=== PATIENT | male | born 1980 | race Caucasian/White ===

== ENCOUNTER 2016-12-20 10:37 | Inpatient (IN) | payer OTHER ==
[2016-12-20] MEDS ORDERED: AMPICILLIN NA/SULBACTAM NA 3 GM in SODIUM CHLORIDE 100 ML IVPB ONE (11:44)
[2016-12-20 12:06] LABS: BASOPHIL 1.3 % (0-2.0); EOSINOPHIL 0.5 % (0-4.5); MCH 29.4 pg (25.7-33.7); MCHC 33.8 g/dl (32.0-35.9); MEAN PLT VOLUME 8.3 fl (7.5-11.1); NEUTROPHILS 77.9 % (42.8-82.8); PLATELET COUNT 281 K/MM3 (134-434); WHITE BLOOD COUNT 12.4 K/mm3 (4.0-10.0)
[2016-12-20] MEDS ORDERED: LEVOFLOXACIN 500 MG IVPB 100 ML IVPB ONE ×2 (12:06→12:17)
[2016-12-20] MEDS ORDERED: METRONIDAZOLE 500 MG PREMIXED 100 ML IVPB ONE ×2 (12:06→12:17)
[2016-12-20 12:18] LABS: INR 1.03 (0.82-1.09); PROTHROMBIN TIME (PATIENT) 11.3 SEC (9.98-11.88)
[2016-12-20 12:21] LABS: ACTIVATED PTT 27.8 SECONDS (26.9-34.4)
[2016-12-20 12:30] LABS: ANION GAP 8 (8-16); BILIRUBIN,TOTAL 0.3 mg/dL (0.2-1.0); CALCIUM 8.9 mg/dL (8.5-10.1); CO2 25 mmol/L (21-32); CREATININE 0.6 mg/dL (0.7-1.3); GLUCOSE,RANDOM 263 mg/dL (74-106); SGOT/AST 16 U/L (15-37); SGPT/ALT 32 U/L (12-78); TOT PROT 6.8 g/dl (6.4-8.2)
[2016-12-20 12:31] LABS: ALK PHOS 182 U/L (45-117)
[2016-12-20] MEDS ORDERED: morphine CARPU-JECT 4 MG/1 ML DISP.SYRIN IVPUSH ONE (12:31)
--- NOTE | 2016-12-20 12:34 | PDOC ---
History of Present Illness - General Chief Complaint: Abscess Boil Stated Complaint: INFECTION ON BUTTOCKS Time Seen by Provider: 12/20/16 11:30 History Source: Patient Exam Limitations: No Limitations - History of Present Illness Initial Comments: 12/20/16 12:27 36 yr male with c/o painful abscess to rectal area started 5-7 days ago now worse and draining with chills last night. Pt has neg abd pain or vomiting, no past medical history. 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 Pt has no PMD, was seen at the clinic last sunday . Timing/Duration: reports: week Severity: Yes: moderate Location: reports: other (rectal/perianal ) Past History - Past Medical History Allergies/Adverse Reactions: Allergies Allergy/AdvReac Type Severity Reaction Status Date / Time Penicillins Allergy Mild Hives Verified 12/20/16 12:30 Home Medications: Ambulatory Orders NK [No Known Home Medication] 12/20/16 - Suicide/Smoking/Psychosocial Hx Smoking History: Former smoker Have you smoked in the past 12 months: No If you are a former smoker, when did you quit?: 13 YRS AGO Information on smoking cessation initiated: No Hx Alcohol Use: No Drug/Substance Use Hx: No Substance Use Type: None Review of Systems - Review of Systems Able to Perform ROS?: Yes Is the patient limited Welsh proficient: No Constitutional: Yes: Symptoms Reported, Chills HEENTM: No: Symptoms Reported Respiratory: No: Symptoms reported Cardiac (ROS): No: Symptoms Reported ABD/GI: Yes: Symptoms Reported, See HPI, Constipated : No: Symptoms Reported Musculoskeletal: No: Symptoms Reported Integumentary: Yes: See HPI *Physical Exam - Vital Signs Last Vital Signs Temp Pulse Resp BP Pulse Ox 98.4 F 99 H 20 146/105 97 12/20/16 10:38 12/20/16 10:38 12/20/16 10:38 12/20/16 10:38 12/20/16 10:38 - Physical Exam General Appearance: Yes: Nourished, Appropriately Dressed HEENT: positive: EOMI, OLIVER, Normal ENT Inspection, TMs Normal, Pharynx Normal Neck: positive: Supple. negative: Tender Respiratory/Chest: positive: Lungs Clear, Normal Breath Sounds Cardiovascular: positive: Regular Rhythm, Regular Rate Gastrointestinal/Abdominal: positive: Normal Bowel Sounds, Soft. negative: Tender Male Genitalia: positive: normal genitalia Rectal Exam: positive: other (tender indurated mass to the left perirectal area approximately 6cm extending to the buttock with drainage , ) Musculoskeletal: positive: Normal Inspection Extremity: positive: Normal Inspection, Normal Range of Motion Integumentary: positive: Normal Color, Dry, Warm Neurologic: positive: Fully Oriented, Alert, Normal Mood/Affect, Normal Response , Motor Strength 08/04 ED Treatment Course - LABORATORY CBC & Chemistry Diagram: 12/21/16 06:00 12/21/16 06:00 - ADDITIONAL ORDERS Additional order review: Laboratory Results 12/20/16 11:57 PT with INR 11.30 INR 1.03 PTT (Actin FS) 27.8 12/20/16 11:57 RBC 5.08 MCV 87.0 MCHC 33.8 RDW 13.0 MPV 8.3 Neutrophils % 77.9 Lymphocytes % 11.6 Monocytes % 8.7 Eosinophils % 0.5 Basophils % 1.3 - RADIOLOGY Radiology Studies Ordered: Category Date Time Status ABDOMEN & PELVIS CT WITH CONTR [CT] Stat CT Scan 12/20/16 11:39 Ordered - Medications Given in the ED: ED Medications Discontinued Medications Generic Name Dose Route Start Last Admin Trade Name Freq PRN Reason Stop Dose Admin Ampicillin Sodium/Sulbactam 100 mls @ 200 mls/hr 12/20/16 11:44 12/20/16 12:16 Sodium 3 gm/ Sodium Chloride IVPB 12/20/16 12:13 Not Given ONCE ONE - Consult/PCP Time Called: 13:05 Case discussed with personal care physician: Darius Garrett Consult Reason/Comments: case discussed and will admit , will call - Additional Consults Time Called: 13:14 Consult/PCP: Progress Note - Progress Note Progress Note: after ordering Unaysn pt told the RN he was allergic to PCN. I have canceled and ordered levaquin and Flagyl. Medical Decision Making - Medical Decision Making 12/20/16 12:29 cc: rectal pain with abscess for one week had chills and drainage start last night pt is unable to sit or lie on back due to pain pt denies and PMH will do labs, IVAB , Ct pelvis to r/o rectal abscess pt has induration with fluctuance to the per rectal area extending to the left buttock case discussed in detail with ER attending Dr. Kelley and agrees with plan to admit for IVAB 12/20/16 12:48 after ordering Unaysn pt told the RN he was allergic to PCN. I have canceled and ordered Levaquin and Flagyl. 12/20/16 14:38 called the ER states the patient has no insurance so pt is to be admitted to the hospitalist. I have spoke to 's office and I have canceled as the pt is no longer admitted to . I have spoke to admitting hospitalist and has accepted the patient. I have spoke to organizational psychologist surgery and he will consult on the patient. 12/20/16 14:54 *DC/Admit/Observation/Transfer Diagnosis at time of Disposition: Perirectal abscess - Discharge Dispostion Admit: Yes - Referrals
[2016-12-20 13:14] LABS: URINE APPEARANCE CLEAR; URINE BILIRUBIN NEGATIVE (NEGATIVE); URINE BLOOD NEGATIVE (NEGATIVE); URINE COLOR LTYELLOW; URINE GLUCOSE (UA) 3+ (NEGATIVE); URINE KETONE 2+ (NEGATIVE); URINE LEUK ESTERASE NEGATIVE (NEGATIVE); URINE NITRITE NEGATIVE (NEGATIVE); URINE PROTEIN NEGATIVE (NEGATIVE); URINE UROBILINOGEN NEGATIVE mg/dL (0.2-1.0)
[2016-12-20] MEDS ORDERED: morphine CARPU-JECT 4 MG/1 ML DISP.SYRIN ONE (14:05)
--- NOTE | 2016-12-20 14:29 | HP ---
Admitting History and Physical - Admission Chief Complaint: rectal pain 5 days. swelling. mistaking for hemorroids. wbc high History of Present Illness: glucose ? high ? dm History Source: Patient Limitations to Obtaining History: No Limitations - Past Medical History Endocrine: Yes: Diabetes Mellitus - Past Surgical History Past Surgical History: Yes: None - Smoking History Smoking history: Former smoker Have you smoked in the past 12 months: No If you are a former smoker, when did you quit?: 13 YRS AGO - Alcohol/Substance Use Hx Alcohol Use: No Home Medications - Allergies Allergies/Adverse Reactions: Allergies Allergy/AdvReac Type Severity Reaction Status Date / Time Penicillins Allergy Mild Hives Verified 12/20/16 12:30 - Home Medications Home Medications: Ambulatory Orders NK [No Known Home Medication] 12/20/16 Physical Examination Vital Signs: Vital Signs Temperature 98.4 F 12/20/16 10:38 Pulse Rate 99 H 12/20/16 10:38 Respiratory Rate 20 12/20/16 10:38 Blood Pressure 146/105 12/20/16 10:38 O2 Sat by Pulse Oximetry (%) 97 12/20/16 10:38
--- NOTE | 2016-12-20 15:02 | HP ---
CHIEF COMPLAINT: perianal pain PCP: None HISTORY OF PRESENT ILLNESS: 36 yo M with no signifcant PMHx presents to ED with one week history of worsening perianal pain. Approximately 5 days prior to visit he started with pulsating pain of his left medial gluteus that subsequently became more painful and red. He went to walk in clinic and was given hydrocortisone cream for the redness. Pain worsened and redness spread. He then developed a draining abscess. For past day pain had gotten to point where he could no longer sit and even ambulating became difficult, which prompted trip to ED. He endorses subjective fevers and chills. No prior similar events in past. Denies CP, SOSA, SOB, palpitations, abdominal pain, N/V. No sick contacts or recents travel. ER course was notable for: (1)CBC shows WBC - 12.4 and tachycardic HR 99 = sepsis (2)CT A/P shows inflammatory changes but no discrete abscess. (3)Hyperglycemia- random glucose 263 Recent Travel:Denies PAST MEDICAL HISTORY:none PAST SURGICAL HISTORY:none Social History: Smoking:never Alcohol:socially Drugs: denies Family History: non-contributory Allergies Penicillins Allergy (Mild, Verified 12/20/16 12:30) Hives HOME MEDICATIONS: Home Medications Medication Instructions Recorded NK [No Known Home Medication] 12/20/16 REVIEW OF SYSTEMS CONSTITUTIONAL: fever, chills, diaphoresis Absent: , generalized weakness, malaise, loss of appetite, weight change HEENT: Absent: rhinorrhea, nasal congestion, throat pain, throat swelling, difficulty swallowing, mouth swelling, ear pain, eye pain, visual changes CARDIOVASCULAR: Absent: chest pain, syncope, palpitations, irregular heart rate, lightheadedness , peripheral edema RESPIRATORY: Absent: cough, shortness of breath, dyspnea with exertion, orthopnea, wheezing, stridor, hemoptysis GASTROINTESTINAL: Absent: abdominal pain, abdominal distension, nausea, vomiting, diarrhea, constipation, melena, hematochezia GENITOURINARY: Absent: dysuria, frequency, urgency, hesitancy, hematuria, flank pain, genital pain MUSCULOSKELETAL: Absent: myalgia, arthralgia, joint swelling, back pain, neck pain SKIN: painful lesion of left buttocks. Absent: rash, itching, pallor HEMATOLOGIC/IMMUNOLOGIC: Absent: easy bleeding, easy bruising, lymphadenopathy, frequent infections ENDOCRINE: Absent: unexplained weight gain, unexplained weight loss, heat intolerance, cold intolerance NEUROLOGIC: Absent: headache, focal weakness or paresthesias, dizziness, unsteady gait, seizure, mental status changes, bladder or bowel incontinence PSYCHIATRIC: Absent: anxiety, depression, suicidal or homicidal ideation, hallucinations. PHYSICAL EXAMINATION GENERAL: AAOx3, mild distress HEAD: NC/AT EYES:PERRLA, EOMI, sclera anicteric, conjunctiva clear. No lid lag. EARS, NOSE, THROAT: Dry mucous membranes. NECK: supple, No jvd LUNGS: CTAB. No wheezes, and no crackles. No accessory muscle use. HEART: RRR, S1S2 normal , no m/g/r ABDOMEN: Soft, nontender, not distended, normoactive bowel sounds, no guarding, no rebound, no masses. No hepatomegaly or splenomegaly. MUSCULOSKELETAL: Normal range of motion at all joints. No bony deformities or tenderness. No CVA tenderness. UPPER EXTREMITIES: 2+ pulses, warm, well-perfused. No cyanosis. No clubbing. No peripheral edema. LOWER EXTREMITIES: 2+ pulses, warm, well-perfused. No calf tenderness. No peripheral edema. NEUROLOGICAL: Cranial nerves II-XII intact. Normal speech. gait po PSYCHIATRIC: Cooperative. Good eye contact. Appropriate mood and affect. SKIN: right gluteal draining 2x2cm abscess with surrounding erythema. ASSESSMENT/PLAN: 36 yo M with no signifcant PMHx presents to ED with one week history of worsening perianal pain admitted to med/sug for sepsis secondary to gilbert-anal abscess. Problem List - Problem (1) Sepsis Assessment/Plan: * secondary to gilbert-anal abscess. * Blood and wound culture sent. * Repeat Lactic acid pending. * Started on Levaquin, Zosyn, and metronidazole in ED will continue Levaquin and Flagyl * IVF NS 1L Bolus x 2 bags. * Pain control with morphine 4mg Q4H * Dr. Adan consulted for possible I&D (2) Hyperglycemia Assessment/Plan: * HbgA1C pending * Diabetic diet. Visit type - Emergency Visit Emergency Visit: Yes ED Registration Date: 12/20/16 Care time: The patient presented to the Emergency Department on the above date and was hospitalized for further evaluation of their emergent condition. - New Patient This patient is new to me today: Yes Date on this admission: 12/20/16 - Critical Care Critical Care patient: No
[2016-12-20 15:38] VITALS: BMI 35.8
[2016-12-20] MEDS ORDERED: FLU VACCINE QUAD 60 MCG/0.5 ML (MDV 17-18) IM ONE (15:39)
[2016-12-20] MEDS ORDERED: SODIUM CHLORIDE 1,000 ML IV STA ×2 (16:22→16:34)
[2016-12-20] MEDS ORDERED: morphine CARPU-JECT 2 MG/1 ML DISP.SYRIN IVPUSH PRN (16:22)
--- NOTE | 2016-12-20 17:26 | HP ---
CHIEF COMPLAINT: big bubble in his buttocks PCP: Darius Garrett MD HISTORY OF PRESENT ILLNESS: 36 YO male with no past medical history , who presented to [facility] ed with one week history of gilbert-anal abscess . He noticed some redness on his buttocks last week , that prompted him to see , within 3 days it compose a 2x2 cm abscess that start draining some pussy fluids, and blood . patient reports fever and chills last night, associated with pain in the area 8/10 improved with pain killer and loss of appetite for 3 days because he is scared to use the bathroom. Patient was found to be tachycardic of 86, and wbc 12.4 and he was admitted to med-surg for sepsis. Patient denies any chest pain, SOB, abdominal pain, N/V/D/C, or any urinary symptoms. Patient has a history of using diabetes medicine for 3 months but does not know the name, and was advised by his doctor to loose weight. Patient is and only have sex with his . 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 ER course was notable for: (1) wbc 12.4, HR 86, BP 141/88, Glu 263 (2) 1000 CC NS bolus (3) CT A/P shows inflammatory changes but no discrete abscess. Recent Travel: NO PAST MEDICAL HISTORY: pre-diabetics . PAST SURGICAL HISTORY:None Social History: Smoking:never Alcohol: socially Drugs: never Family History: Father has DM and HTN. Allergies Penicillins Allergy (Mild, Verified 12/20/16 12:30) Hives HOME MEDICATIONS: Home Medications Medication Instructions Recorded NK [No Known Home Medication] 12/20/16 REVIEW OF SYSTEMS CONSTITUTIONAL: Absent: fever, chills, diaphoresis, generalized weakness, malaise, loss of appetite, weight change HEENT: Absent: rhinorrhea, nasal congestion, throat pain, throat swelling, difficulty swallowing, mouth swelling, ear pain, eye pain, visual changes CARDIOVASCULAR: Absent: chest pain, syncope, palpitations, irregular heart rate, lightheadedness , peripheral edema RESPIRATORY: Absent: cough, shortness of breath, dyspnea with exertion, orthopnea, wheezing, stridor, hemoptysis GASTROINTESTINAL: Absent: abdominal pain, abdominal distension, nausea, vomiting, diarrhea, constipation, melena, hematochezia GENITOURINARY: Absent: dysuria, frequency, urgency, hesitancy, hematuria, flank pain, genital pain MUSCULOSKELETAL: Absent: myalgia, arthralgia, joint swelling, back pain, neck pain SKIN: Absent: rash, itching, pallor, 2x2 cm draining abscess on his left buttock with erythema in gilbert anal area. HEMATOLOGIC/IMMUNOLOGIC: Absent: easy bleeding, easy bruising, lymphadenopathy, frequent infections ENDOCRINE: Absent: unexplained weight gain, unexplained weight loss, heat intolerance, cold intolerance NEUROLOGIC: Absent: headache, focal weakness or paresthesias, dizziness, unsteady gait, seizure, mental status changes, bladder or bowel incontinence PSYCHIATRIC: Absent: anxiety, depression, suicidal or homicidal ideation, hallucinations. PHYSICAL EXAMINATION Vital Signs - 24 hr 12/20/16 12/20/16 15:25 15:42 Temperature 99.2 F Pulse Rate 86 Respiratory 18 Rate Blood Pressure 141/88 O2 Sat by Pulse 98 Oximetry (%) GENERAL: Awake, alert, and fully oriented, in no acute distress. HEAD: Normal with no signs of trauma. EYES: sclera anicteric, conjunctiva clear. EARS, NOSE, THROAT: Moist mucous membranes. LUNGS: Breath sounds equal, clear to auscultation bilaterally. No wheezes, and no crackles. No accessory muscle use. HEART: Regular rate and rhythm, normal S1 and S2 without murmur, rub or gallop. ABDOMEN: Soft, nontender, not distended, normoactive bowel sounds, no guarding, no rebound tenderness. MUSCULOSKELETAL: Normal range of motion at all joints. No bony deformities or tenderness. No CVA tenderness. LOWER EXTREMITIES: 2+ pulses, warm, well-perfused. No calf tenderness. No peripheral edema. NEUROLOGICAL: good mentation. PSYCHIATRIC: Cooperative. Good eye contact. Appropriate mood and affect. SKIN: Warm, dry, no rashes or lesions noted, 2x2 cm abscess in hes left buttocks with gilbert anal erythema. ASSESSMENT/PLAN: is 36 year old male with no past medical history who presented to the ED with one week history of gilbert-anal abscess was found to have sepsis and was admitted for further evaluation and treatment. # Sepsis 2/2 gilbert-anal abscess * wbc 12.4 , HR 84, source of infection * Blood culture,urine culture, wound culture pending * repeat lctic acid pending * IV NS @ 1000 CC bolus was given in tenED, will give him another 2000 CC * Iv abx levaquin 500 once and 500 flagyl was given in the ED for one dose * Continue IV abx daily for 7 days (Levaquin 500 mg qd, Flagyl 500 mg IV q 6 hr) , allergic to penicillin. * Morphine 1 mg IVbp Q4hr PRN * surgery consulted for I&D * NPO after mid night for possible OR procedure * HIV screening test * * # Hyperglycemia, * Glu 263 on admission , * UA : +3 glucose, +2 keton * HgA1c * BGM , ISS, * will monitor blood sugar * Patient education * encourage weight loss * # High blood pressure, * 141/88 on admission * monitor Bp * Low sodium diet, diabetic diet * #Proph, * DVT : Moderate risk , SCDS both legs * GI: No need for now * #FEN: * 2000 CC NS bolus * WNL * Low sodium, diabetic diet. * #Dispo: * admit to med-surg Visit type - Emergency Visit Emergency Visit: Yes ED Registration Date: 12/20/16 Care time: The patient presented to the Emergency Department on the above date and was hospitalized for further evaluation of their emergent condition. - New Patient This patient is new to me today: Yes Date on this admission: 12/20/16 - Critical Care Critical Care patient: No
--- NOTE | 2016-12-20 18:07 | PN ---
Teaching Attending Note Name of Resident: Jacinto Davies ATTENDING PHYSICIAN STATEMENT I saw and evaluated the patient. I reviewed the resident's note and discussed the case with the resident. I agree with the resident's findings and plan as documented. SUBJECTIVE:36yo M with no PMH presented with buttock pain x 6 days. pt states pain has been progressively worsening since then and then noticed. noted yesterday it started draining some fluid. pt states he never had similar episode in the past. 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 denies CP, SOB, fever, chills, N/V/C/D. was told 6 years ago he was diabetic and was started on medication (does not recall name) but states he started eating healthy and exercising and lost 44 lbs then stopped taking the medication for himself. states he is only sexually active with his . denies IVDA or foreign body insertion into his rectum. OBJECTIVE: Last Vital Signs Temp Pulse Resp BP Pulse Ox 99.2 F 86 18 141/88 98 12/20/16 15:25 12/20/16 15:25 12/20/16 15:25 12/20/16 15:25 12/20/16 15:42 General NAD Skin L buttock with 3x3 cm abscess with active pus drainage tender to light palpation with large surrounding area of erythema ASSESSMENT AND PLAN: 36yo M with no PMH presented with R buttock pain 1. Sepsis due to L buttock abscess and surrounding erythema- Medicine admission. (leukocytosis and tachycardia) CT negative for discrete abscess however active drainage is required. Surgery consulted for I&D. NPO tonight for likely I&D in the AM. started on levaquin and flagyl due to PCN allergy. start IVF. lactic acid normal. pain contro. Cx obtained. pt consented to HIV testing. check HIV status. 2. Hypergylcemia- is likely diabetic as also has glucosuria. check A1c. start BGM and ISS at this time. 3. DVT ppx- lovenox
[2016-12-20] MEDS: METRONIDAZOLE 500 MG PREMIXED 100 ML IVPB SCH (18:08)
[2016-12-20 18:49] LABS: HIV 1 & 2 AB NEGATIVE; HIV 1 AGp24 NEGATIVE
[2016-12-20] MEDS: INSULIN SLIDING SCALE (NOVOLOG) 1 VIAL SQ SCH (21:47)
--- NOTE | 2016-12-20 22:53 | CONSULT ---
Consult Consult Specialty:: Surgery Reason for Consultation:: Left perirectal/perianal abscess - History of Present Illness History of Present Illness: 36 male presents for tenderness, redness x several days at left perirectal/ perianal area Noticed some discharge form the area 1st episode Denies history of DM No subjective fevers/chills - History Source History Provided By: Patient, Medical Record Limitations to Obtaining History: No Limitations - Past Medical History Endocrine: Yes: Diabetes Mellitus - Past Surgical History Past Surgical History: Yes: None - Alcohol/Substance Use Hx Alcohol Use: No - Smoking History Smoking history: Former smoker Have you smoked in the past 12 months: No If you are a former smoker, when did you quit?: 13 YRS AGO Home Medications - Allergies Allergies/Adverse Reactions: Allergies Allergy/AdvReac Type Severity Reaction Status Date / Time Penicillins Allergy Mild Hives Verified 12/20/16 12:30 - Home Medications Home Medications: Ambulatory Orders NK [No Known Home Medication] 12/20/16 Family Disease History - Family Disease History Family History: Denies Review of Systems - Review of Systems Constitutional: denies: Chills, Fever HENT: reports: No Symptoms Neck: reports: No Symptoms Cardiovascular: denies: Chest Pain Respiratory: denies: Cough Gastrointestinal: denies: Abdominal Pain Genitourinary: reports: No Symptoms Integumentary: reports: Erythema, Other (+ tenderness at left perirectal area) Neurological: denies: Change in LOC Pain Intensity: 4 Physical Exam Vital Signs: Vital Signs Temperature 99.2 F 12/20/16 15:25 Pulse Rate 86 12/20/16 15:25 Respiratory Rate 18 12/20/16 15:25 Blood Pressure 141/88 12/20/16 15:25 O2 Sat by Pulse Oximetry (%) 98 12/20/16 15:42 Constitutional: Yes: Calm. No: No Distress Neck: Yes: WNL Cardiovascular: Yes: Regular Rate and Rhythm Respiratory: Yes: Regular Gastrointestinal: Yes: Soft. No: Tenderness, Tenderness, Rebound Extremities: Yes: WNL Integumentary: Yes: Other (+ erythema and tenderness at left perirectal area, unable to perform rectal exam due to tenderness, + some purulent discharge and induration) Neurological: Yes: Alert, Oriented Labs: CBC, BMP 12/20/16 11:57 12/20/16 11:57 Imaging - Results Cat Scan: Report Reviewed, Image Reviewed Problem List - Problems (1) Perirectal abscess Code(s): K61.1 - RECTAL ABSCESS Assessment/Plan 36 male with left perirectal abscess NPO IV fluids Antibiotics For Incision and Drainage in am Risks and benefits explained Agrees
[2016-12-20] MEDS ORDERED: SODIUM CHLORIDE 1,000 ML IV SCH (23:00)
[2016-12-21] MEDS: METRONIDAZOLE 500 MG PREMIXED 100 ML IVPB SCH ×3 (02:30→18:33)
[2016-12-21] MEDS: INSULIN SLIDING SCALE (NOVOLOG) 1 VIAL SQ SCH ×4 (06:22→21:04)
[2016-12-21 07:29] LABS: BASOPHIL 0.6 % (0-2.0); EOSINOPHIL 1.5 % (0-4.5); MCH 29.6 pg (25.7-33.7); MCHC 33.9 g/dl (32.0-35.9); MEAN CELL VOLUME 87.2 fl (80-96); MEAN PLT VOLUME 8.5 fl (7.5-11.1); NEUTROPHILS 68.9 % (42.8-82.8); PLATELET COUNT 281 K/MM3 (134-434); RDW 13.1 % (11.9-15.9)
[2016-12-21 08:02] LABS: ANION GAP 8 (8-16); CALCIUM 8.4 mg/dL (8.5-10.1); CO2 27 mmol/L (21-32); GLUCOSE,RANDOM 187 mg/dL (74-106)
[2016-12-21 08:03] LABS: CREATININE 0.5 mg/dL (0.7-1.3)
[2016-12-21] MEDS ORDERED: LEVOFLOXACIN 750 MG IVPB 150 ML IVPB SCH (10:00)
[2016-12-21] MEDS ORDERED: ONDANSETRON 4 MG/2 ML VIAL IVPUSH PRN ×2 (12:39→15:11)
[2016-12-21] MEDS ORDERED: PROPOFOL 20 ML ONE ×3 (12:43→13:29)
[2016-12-21] MEDS ORDERED: SUCCINYLCHOLINE CHLORIDE 200 MG/10 ML VIAL ONE (12:44)
[2016-12-21] MEDS ORDERED: MIDAZOLAM HCL 2 MG/2 ML SINGLE DOSE VIAL ONE (12:44)
[2016-12-21] MEDS ORDERED: LACTATED RINGERS SOLUTION 1,000 ML IV SCH (12:45)
--- NOTE | 2016-12-21 13:12 | PN ---
Physical Exam: SUBJECTIVE: Patient seen and examined at bedside. No acute events over night. buttock pain is controlled. He denies any fever, chills, N/V/D/C. the abscess still draining fluids and puss. OBJECTIVE: Vital Signs Period Temp Pulse Resp BP Sys/Angel Pulse Ox Last 24 Hr 97.8 F-99.2 F 69-86 18-20 118-141/70-88 98-99 GENERAL: The patient is awake, alert, and fully oriented, in no acute distress. HEAD: Normal with no signs of trauma. EYES: sclera anicteric, conjunctiva clear. No ptosis. ENT: moist mucous membranes. LUNGS: Breath sounds equal, clear to auscultation bilaterally, no wheezes, no crackles, no accessory muscle use. HEART: Regular rate and rhythm, S1, S2 without murmur, rub or gallop. ABDOMEN: Soft, nontender, nondistended, normoactive bowel sounds, no guarding, no rebound tenderness. EXTREMITIES: warm, well-perfused, no edema. NEUROLOGICAL: good mentation PSYCH: Normal mood, normal affect. SKIN: Warm, dry, no rashes or lesions noted, 3x3 cm gilbert-rectal draining abscess with 8x8 cm erythema and cellulitis. Laboratory Results - last 24 hr 12/20/16 12/20/16 12/21/16 17:00 21:46 06:00 WBC 7.0 D RBC 4.73 Hgb 14.0 Hct 41.2 MCV 87.2 MCH 29.6 MCHC 33.9 RDW 13.1 Plt Count 281 MPV 8.5 Neutrophils % 68.9 Lymphocytes % 18.8 D Monocytes % 10.2 Eosinophils % 1.5 D Basophils % 0.6 Sodium Potassium Chloride Carbon Dioxide Anion Gap BUN Creatinine POC Glucometer 299 Random Glucose Hemoglobin A1c % Calcium HIV 1&2 Antibody Screen Negative HIV P24 Antigen Negative 12/21/16 12/21/16 12/21/16 06:00 06:00 06:20 WBC RBC Hgb Hct MCV MCH MCHC RDW Plt Count MPV Neutrophils % Lymphocytes % Monocytes % Eosinophils % Basophils % Sodium 141 Potassium 4.2 Chloride 106 Carbon Dioxide 27 Anion Gap 8 BUN 10 Creatinine 0.5 L POC Glucometer 182 Random Glucose 187 H D Hemoglobin A1c % 10.9 H Calcium 8.4 L HIV 1&2 Antibody Screen HIV P24 Antigen Active Medications Generic Name Dose Route Start Last Admin Trade Name Freq PRN Reason Stop Dose Admin Fentanyl 50 mcg 12/21/16 12:39 Sublimaze Injection - IVPUSH 12/24/16 12:40 [id number] PRN PAIN Metronidazole 100 mls @ 100 mls/hr 12/20/16 18:00 12/21/16 10:22 Flagyl 500mg Premixed Ivpb - IVPB 100 mls/hr Q8H-IV JONATHAN Administration Levofloxacin 150 mls @ 100 mls/hr 12/21/16 10:00 12/21/16 10:22 Levaquin 750 Mg Premixed Ivpb - IVPB 100 mls/hr DAILY JONATHAN Administration Sodium Chloride 1,000 mls @ 125 mls/hr 12/20/16 23:00 12/20/16 23:29 Normal Saline - IV 125 mls/hr ASDIR JONATHAN Administration Lactated Ringer's 1,000 mls @ 75 mls/hr 12/21/16 12:45 Lactated Ringers Solution IV ASDIR JONATHAN Insulin Aspart 1 vial 12/20/16 22:00 12/21/16 12:31 Novolog Vial Sliding Scale - SQ Not Given ACHS JONATHAN Protocol Morphine Sulfate 1 mg 12/20/16 16:22 Morphine Injection - IVPUSH Q4H PRN PAIN Ondansetron HCl 4 mg 12/21/16 12:39 Zofran Injection IVPUSH 12/21/16 18:40 Q6H PRN NAUSEA AND/OR VOMITING CBC, BMP 12/21/16 06:00 12/21/16 06:[address] scan: 12/20/2016: No pelvic mass or fluid collection, no lymphadenopathy. inflammatory process without discrete abscess. ASSESSMENT/PLAN: is 36 year old male with no past medical history who presented to the ED with one week history of gilbert-anal abscess was found to have sepsis and was admitted for further evaluation and treatment. # Sepsis 2/2 gilbert-anal abscess and cellulitis * day of admission wbc 12.4 , HR 84, with source of infection, improving to wbc 7, HR 80 * Blood culture,urine culture, wound culture pending * Iv abx levaquin 500 once and 500 flagyl was given in the ED for one dose * Continue IV abx daily for 7 days (Levaquin 500 mg qd, Flagyl 500 mg IV q 6 hr) , allergic to penicillin. 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 * GI: No need for now * #FEN: * 2000 CC NS bolus at admission day , on no fluid now * WNL * Low sodium, diabetic diet. * #Dispo: * admit to med-surg Visit type - Emergency Visit Emergency Visit: Yes ED Registration Date: 12/20/16 Care time: The patient presented to the Emergency Department on the above date and was hospitalized for further evaluation of their emergent condition. - New Patient This patient is new to me today: No - Critical Care Critical Care patient: No
--- NOTE | 2016-12-21 14:33 | OP ---
Operative Note - Note: Operative Date: 12/21/16 Pre-Operative Diagnosis: Left perirectal abscess Operation: Incision and drainage of left perirectal abscess, excisional debridement of necrotic subcutaeous tissue Findings: Large abscess cavity Approximately 8cm x 8cm x 8cm Post-Operative Diagnosis: Same as Pre-op Surgeon: Chato Adan Anesthesia: General Specimens Removed: Abscess cavity content, culture, necrotic subcutaneous tissue Estimated Blood Loss (mls): 5 Operative Report Dictated: Yes
--- NOTE | 2016-12-21 14:41 | EKG ---
Test Reason : Blood Pressure : / mmHG Vent. Rate : 087 BPM Atrial Rate : 087 BPM P-R Int : 164 ms QRS Dur : 092 ms QT Int : 360 ms P-R-T Axes : 028 008 004 degrees QTc Int : 433 ms NORMAL SINUS RHYTHM NORMAL ECG NO PREVIOUS ECGS AVAILABLE Confirmed by SATURNINO DONOHUE MD ([id number]) on 12/21/2016 2:40:59 PM Referred By: Confirmed By:SATURNINO DONOHUE MD
[2016-12-21] MEDS ORDERED: SODIUM CHLORIDE 1,000 ML IV SCH (15:11)
[2016-12-21] MEDS ORDERED: morphine CARPU-JECT 2 MG/1 ML DISP.SYRIN IVPUSH PRN (15:11)
--- NOTE | 2016-12-21 15:24 | PN ---
Teaching Attending Note Name of Resident: Jacinto Davies ATTENDING PHYSICIAN STATEMENT I saw and evaluated the patient. I reviewed the resident's note and discussed the case with the resident. I agree with the resident's findings and plan as documented. SUBJECTIVE:pt was seen prior to I&D states pain is controlled as long as he does not lay on that side. denies Cp, SOB, fever, chills, N/V/C/D OBJECTIVE: Last Vital Signs Temp Pulse Resp BP Pulse Ox 98.7 F 71 18 118/75 98 12/21/16 10:38 12/21/16 10:38 12/21/16 10:38 12/21/16 10:38 12/21/16 09:00 General NAD Skin L buttock with 3x3 cm abscess with active pus drainage tender to light palpation with large surrounding area of erythema ASSESSMENT AND PLAN: 36yo M with no PMH presented with R buttock pain 1. Sepsis due to L buttock abscess and surrounding erythema- increased drainage from abscess. NPO for OR and I&D. will f/u Cx report. on Levaquin and Flagyl day 2. HIV negative. pain control. 2. New onset DM- A1c 10.9. counseled on risks of uncontrolled DM including but not limited to vision loss, ACS, kidney injury which can lead to HD and uncontrollable infections which can lead to amputations. nutrition consult. start levemir 5 units tonight as is insulin naive. jessica BGM and iss. diabetic diet. 3. DVT ppx- lovenox
--- NOTE | 2016-12-21 16:31 | OP ---
DATE OF OPERATION: 12/21/2016 SURGEON: Luma Adan MD PREOPERATIVE DIAGNOSIS: Left perirectal abscess. POSTOPERATIVE DIAGNOSIS: Left perirectal abscess and necrotic subcutaneous tissue of the left buttock. PROCEDURE: Incision and drainage of left perirectal abscess and excisional debridement of subcutaneous tissue of the left buttock. SPECIMEN: Culture of abscess cavity content and necrotic subcutaneous tissue of the left buttock. ESTIMATED BLOOD LOSS: 5 mL DRAINS: None. ANESTHESIA: GET. REASON FOR PROCEDURE: This is a 36-year-old gentleman who presented to the emergency room with fever, pain, and tenderness in his left perirectal area. He was found to have a large abscess cavity. Because of this, he was consented for incision and drainage of a left perirectal abscess. The risks and benefits of the procedure were explained. These including bleeding, infection, prolonged wound healing, injury to surrounding structures including the rectum, nerve injury, vessel injury. He understood and signed informed consent. DESCRIPTION OF PROCEDURE: Patient was placed in the prone position after undergoing intubation by Anesthesia. The area was prepped and draped with Betadine in the usual sterile fashion. Timeout was performed. Incision and drainage of the area was performed at the left perirectal abscess cavity over the greatest area of fluctuance. The cavity was broken, and all loculations were opened with finger dissection. Cultures were taken. The cavity was large, noted to be approximately 8 cm x 8 cm x 8 cm in size. In addition, there was necrotic subcutaneous tissue which was excised. An excisional debridement of this area was performed, and specimen was sent. Hemostasis was noted and the cavity packed with Kerlix soaked in Betadine. Dressings were applied. The patient tolerated the procedure well, was transferred to recovery room in stable condition. LUMA ADAN M.D. [id number]
[2016-12-21] MEDS: HYDROmorphone HCL CARPU-JECT 1 MG/1 ML DISP.SYRIN IVPB PRN (16:35)
[2016-12-21] MEDS ORDERED: INSULIN (NOVOLOG) ASPART 100 UNITS/ML 10ML VIAL ONE (20:45)
[2016-12-21] MEDS: INSULIN DETEMIR 100 UNITS/ML MDV SQ SCH (21:03)
[2016-12-22] MEDS: HYDROmorphone HCL CARPU-JECT 1 MG/1 ML DISP.SYRIN IVPB PRN ×2 (00:01→13:32)
[2016-12-22] MEDS: METRONIDAZOLE 500 MG PREMIXED 100 ML IVPB SCH ×3 (01:18→17:30)
[2016-12-22] MEDS: INSULIN SLIDING SCALE (NOVOLOG) 1 VIAL SQ SCH ×4 (06:04→21:34)
[2016-12-22 07:46] LABS: BASOPHIL 0.6 % (0-2.0); MCH 29.6 pg (25.7-33.7); MEAN CELL VOLUME 87.1 fl (80-96); MEAN PLT VOLUME 8.3 fl (7.5-11.1); NEUTROPHILS 74.6 % (42.8-82.8); PLATELET COUNT 320 K/MM3 (134-434); WHITE BLOOD COUNT 9.3 K/mm3 (4.0-10.0)
[2016-12-22 08:48] LABS: ANION GAP 13 (8-16); CALCIUM 8.8 mg/dL (8.5-10.1); CO2 24 mmol/L (21-32); CREATININE 0.5 mg/dL (0.7-1.3); GLUCOSE,RANDOM 163 mg/dL (74-106)
[2016-12-22] MEDS: ENOXAPARIN NA (PORCINE) 40 MG/0.4 ML DISP.SYRIN SQ SCH (09:36)
[2016-12-22] MEDS: LEVOFLOXACIN 750 MG IVPB 150 ML IVPB SCH (10:42)
[2016-12-22] MEDS ORDERED: INSULIN (NOVOLOG) ASPART 100 UNITS/ML 10ML VIAL ONE ×3 (11:35→21:28)
--- NOTE | 2016-12-22 12:37 | PN ---
Progress Note (short form) - Note Progress Note: POD 1 Pain controlled Vital Signs Period Temp Pulse Resp BP Sys/Angel Pulse Ox Last 24 Hr 97.9 F-100 F 72-83 16-20 120-148/69-89 97-100 Wound packed with kerlex in betadine, dressing intact CBC, BMP 12/22/16 06:30 12/22/16 06:30 F/u cultures Antibiotics daily wound packing by RN VNS ordered for home Can discharge home per primary team Problem List - Problems (1) Perirectal abscess Code(s): K61.1 - RECTAL ABSCESS
--- NOTE | 2016-12-22 13:48 | PN ---
Teaching Attending Note Name of Resident: Jacinto Davies ATTENDING PHYSICIAN STATEMENT I saw and evaluated the patient. I reviewed the resident's note and discussed the case with the resident. I agree with the resident's findings and plan as documented. SUBJECTIVE:some pain when going to the bathroom but overall improved. denies CP , SOB, fever, chills, N/V/C/D OBJECTIVE: Last Vital Signs Temp Pulse Resp BP Pulse Ox 100 F H 83 18 136/85 98 12/22/16 09:28 12/22/16 09:28 12/22/16 09:28 12/22/16 09:12/21/16 21:00 General NAD Skin L buttock with bandage intact ASSESSMENT AND PLAN: 36yo M with no PMH presented with R buttock pain 1. Sepsis due to L buttock abscess and surrounding erythema-s/p I&D 12/21 with [id number] necrotic abscess drained and packed. f/u Cx report. on Levaquin and Flagyl day 3. wound care per surgery. HIV negative. pain control. 2. New onset DM- A1c 10.9. sugars improved. taught by RN how to self inject and check sugars. cont to titrate insulin to improve control. 3. DVT ppx- lovenox 4. d/c planning tomorrow once Cx reports obtained
--- NOTE | 2016-12-22 16:34 | PN ---
Physical Exam: SUBJECTIVE: Patient seen and examined at bedside. He is feeling much better, he complains of pain only when changing the dressing. He denies any fever, chills, N/V/D/C. OBJECTIVE: Vital Signs Period Temp Pulse Resp BP Sys/Angel Pulse Ox Last 24 Hr 97.9 F-100 F 72-87 16-20 132-146/78-88 98-98 GENERAL: The patient is awake, alert, and fully oriented, in no acute distress. HEAD: Normal with no signs of trauma. EYES: PERRL, extraocular movements intact, sclera anicteric, conjunctiva clear. No ptosis. ENT: Ears normal, nares patent, oropharynx clear without exudates, moist mucous membranes. NECK: Trachea midline, full range of motion, supple. LUNGS: Breath sounds equal, clear to auscultation bilaterally, no wheezes, no crackles, no accessory muscle use. HEART: Regular rate and rhythm, S1, S2 without murmur, rub or gallop. ABDOMEN: Soft, nontender, nondistended, normoactive bowel sounds, no guarding, no rebound, no hepatosplenomegaly, no masses. EXTREMITIES: 2+ pulses, warm, well-perfused, no edema. NEUROLOGICAL: Cranial nerves II through XII grossly intact. Normal speech, gait not observed. PSYCH: Normal mood, normal affect. SKIN: Warm, dry, normal turgor, no rashes or lesions noted dressing covering left buttock, S/P I&D Laboratory Results - last 24 hr 12/21/16 12/21/16 12/22/16 16:44 20:54 05:57 WBC RBC Hgb Hct MCV MCH MCHC RDW Plt Count MPV Neutrophils % Lymphocytes % Monocytes % Eosinophils % Basophils % Sodium Potassium Chloride Carbon Dioxide Anion Gap BUN Creatinine POC Glucometer 185 249 167 Random Glucose Calcium 12/22/16 12/22/16 12/22/16 06:30 06:30 11:32 WBC 9.3 D RBC 4.96 Hgb 14.7 Hct 43.2 MCV 87.1 MCH 29.6 MCHC 34.0 RDW 13.0 Plt Count 320 MPV 8.3 Neutrophils % 74.6 Lymphocytes % 13.4 D Monocytes % 10.4 H Eosinophils % 1.0 Basophils % 0.6 Sodium 139 Potassium 3.9 Chloride 102 Carbon Dioxide 24 Anion Gap 13 BUN 7 D Creatinine 0.5 L POC Glucometer 206 Random Glucose 163 H Calcium 8.8 Active Medications Generic Name Dose Route Start Last Admin Trade Name Freq PRN Reason Stop Dose Admin Enoxaparin Sodium 40 mg 12/22/16 10:00 12/22/16 09:36 Lovenox - SQ 40 mg DAILY JONATHAN Administration Hydromorphone HCl 1 mg 12/21/16 15:35 12/22/16 13:32 Dilaudid Injection - IVPB 1 mg Q4H PRN Administration PAIN Metronidazole 100 mls @ 100 mls/hr 12/21/16 18:00 12/22/16 09:36 Flagyl 500mg Premixed Ivpb - IVPB 100 mls/hr Q8H-IV JONATHAN Administration Levofloxacin 150 mls @ 100 mls/hr 12/22/16 10:00 12/22/16 10:42 Levaquin 750 Mg Premixed Ivpb - IVPB 100 mls/hr DAILY JONATHAN Administration Insulin Aspart 1 vial 12/21/16 16:30 12/22/16 11:40 Novolog Vial Sliding Scale - SQ 2 unit ACHS JONATHAN Administration Protocol Insulin Detemir 5 units 12/21/16 22:00 12/21/16 21:03 Levemir Vial SQ 5 unit HS JONATHAN Administration ASSESSMENT/PLAN: Pelvic CT scan: 12/20/2016: No pelvic mass or fluid collection, no lymphadenopathy. inflammatory process without discrete abscess. ASSESSMENT/PLAN: is 36 year old male with no past medical history who presented to the ED with one week history of gilbert-anal abscess was found to have sepsis and was admitted for further evaluation and treatment. # Sepsis 2/2 gilbert-anal abscess and cellulitis * day of admission wbc 12.4 , HR 84, with source of infection, improving to wbc 7, HR 80 * Blood culture,urine culture, wound culture pending * Iv abx levaquin 500 once and 500 flagyl was given in the ED for one dose * Continue IV abx daily for 10 days (Levaquin 500 mg qd, Flagyl 500 mg IV q 6 hr ), allergic to penicillin. 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 * GI: No need for now * #FEN: * 2000 CC NS bolus at admission day , on no fluid now * WNL * Low sodium, diabetic diet. * #Dispo: * admit to med-surg * Possible D/C tomorrow Visit type - Emergency Visit Emergency Visit: Yes ED Registration Date: 12/20/16 Care time: The patient presented to the Emergency Department on the above date and was hospitalized for further evaluation of their emergent condition. - New Patient This patient is new to me today: No - Critical Care Critical Care patient: No - Discharge Referral Referred to [facility] Med P.C[facility] No
[2016-12-22] MEDS: INSULIN DETEMIR 100 UNITS/ML MDV SQ SCH (21:29)
[2016-12-22] MEDS ORDERED: ACETAMINOPHEN 325 MG TABLET (FP) PO PRN (21:38)
[2016-12-23] MEDS: METRONIDAZOLE 500 MG PREMIXED 100 ML IVPB SCH ×2 (02:15→09:27)
[2016-12-23] MEDS: INSULIN SLIDING SCALE (NOVOLOG) 1 VIAL SQ SCH ×2 (06:17→11:25)
[2016-12-23] MEDS: ENOXAPARIN NA (PORCINE) 40 MG/0.4 ML DISP.SYRIN SQ SCH (09:27)
[2016-12-23] MEDS: LEVOFLOXACIN 750 MG IVPB 150 ML IVPB SCH (10:35)
--- NOTE | 2016-12-23 12:10 | DS ---
Physical Exam: SUBJECTIVE: Patient seen and examined. states pain has improved. only during dressing changes. deneis Cp, SOB, fever, chills, N/V/C/D OBJECTIVE: Vital Signs Period Temp Pulse Resp BP Sys/Angel Pulse Ox Last 24 Hr 98 F-98.9 F 66-87 16-20 112-143/70-93 98 PHYSICAL EXAM GENERAL: The patient is awake, alert, and fully oriented, in no acute distress. HEAD: Normal with no signs of trauma. EYES: PERRL, extraocular movements intact, sclera anicteric, conjunctiva clear. ENT: Ears normal, nares patent, oropharynx clear without exudates, moist mucous membranes. NECK: Trachea midline, full range of motion, supple. LUNGS: Breath sounds equal, clear to auscultation bilaterally, no wheezes, no crackles, no accessory muscle use. HEART: Regular rate and rhythm, S1, S2 without murmur, rub or gallop. ABDOMEN: Soft, nontender, nondistended, normoactive bowel sounds, no guarding, no rebound, no hepatosplenomegaly, no masses. EXTREMITIES: 2+ pulses, warm, well-perfused, no edema. NEUROLOGICAL: Cranial nerves II through XII grossly intact. Normal speech, gait not observed. PSYCH: Normal mood, normal affect. SKIN: Warm, dry, normal turgor, no rashes or lesions noted. LABS Laboratory Results - last 24 hr 12/22/16 12/22/16 12/23/16 17:22 21:26 11:24 POC Glucometer 180 218 251 HOSPITAL COURSE: Date of Admission:12/20/16 Date of Discharge: 12/23/16 Admitting diagnosis: Marilyn-rectal abscess, new onset diabetes Procedures 12/21 I&D marilyn-rectal abscess Pre hospital course 36 YO male with no past medical history , who presented to [facility] ed with one week history of marilyn-anal abscess . He noticed some redness on his buttocks last week , that prompted him to see , within 3 days it compose a 2x2 cm abscess that start draining some pussy fluids, and blood . patient reports fever and chills last night, associated with pain in the area 8/10 improved with pain killer and loss of appetite for 3 days because he is scared to use the bathroom. Patient was found to be tachycardic of 86, and wbc 12.4 and he was admitted to med-surg for sepsis. Patient denies any chest pain, SOB, abdominal pain, N/V/D/C, or any urinary symptoms. Patient has a history of using diabetes medicine for 3 months but does not know the name, and was advised by his doctor to loose weight. Patient is and only have sex with his . 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 Subsequent hospital course admitted to medicine. started on levaquin and flagyl. was seen by surgery and had I&D on 12/21 with [id number] necrotic debris removed. Cx were sent and only showed skin new. while admitted discovered to be diabetic with A1c 10.1. start on levemir 5 unit and iss. sugars improved. diabetic teaching by air intelligence officer and RN. counseled on importance of glucose control. d/c home with levaquin and flagyl to complete 10 day course. Minutes to complete discharge: 40 Discharge Summary Reason For Visit: PERIRECTAL ABSCESS Current Active Problems Diabetes (Acute) Hyperglycemia (Acute) Obesity (Acute) Perirectal abscess (Acute) Sepsis (Acute) - Instructions Diet, Activity, Other Instructions: You were admitted and treated for an abscess with cellulitis on your buttocks. It was drained by surgeon Dr Adan. Continue to take antibiotics until they are finished. Even if your symptoms resolved. Take lactobacillus which is a probiotic while on antibiotics. this will prevent development of diarrhea. Continue daily wound care as you were shown by the nurse (clean the wound with soap and water, pack with kerlix soaked in betadine and place dry clean guaze over wound) You were prescribed percocet for pain. This medication can cause you to be drowsy do not drive or operate heavy machinery while taking this medication. It can also cause constipation. ensure you are having daily bowel movements while on this medication. You were also discovered to be diabetic while you were here. It is very important to closely monitor your sugars. Check your sugars every morning when you wake up and prior to each meal. Take Levemir 5 units at bedtime. Write down your sugars that you get a bring them to your doctor next week. You may need further adjustment in your medication. You will need your A1c (diabetic number) checked in 3 months. Here it was 10.9 Monitor for signs of low blood sugar. Refer to handout given Follow a diabetic diet as discussed with air intelligence officer Follow up with your primary care doctor and the surgeon (Dr Adan) in 1 week If your buttock pain gets worse or develop high fever (temp >101) return to the ER. Insulin sliding scale Sugar # units of insulin <200 0 201-250 2 251-300 4 301-350 6 351-400 8 >401 10 and call your primary care doctor Referrals: Chato Adan MD [Staff Physician] - Darius Garrett MD [Staff Physician] - - Home Medications Comprehensive Discharge Medication List: Ambulatory Orders Docusate Sodium [Colace -] 100 mg PO TID #90 capsule 12/21/16 Oxycodone HCl/Acetaminophen [Percocet 5-325 mg Tablet] 1 - 2 tab PO Q6H #28 tab MDD 4 12/21/16 Insulin (Levemir) [Levemir Flexpen -] 5 units SQ DAILY #1 pen 12/23/16 Insulin Aspart [Novolog Flexpen] 100 unit SQ AC #2 insuln.pen 12/23/16 Lactobacillus Acidophilus [Acidophilus Lactobacilli] 1 each PO DAILY #7 capsule 12/23/16 Lancets [Lancets Ultra Thin] 1 each AC #100 each 12/23/16 Levofloxacin [Levaquin -] 500 mg PO DAILY #7 tablet 12/23/16 Metronidazole [Flagyl -] 500 mg PO Q8H #22 tablet 12/23/16 Miscellaneous Medical Supply [Glucometer Device] 1 each NR ASDIR #1 kit Miscellaneous Medical Supply [Glucometer Test Strips #100] 1 each NR ASDIR #1 box 12/23/16 Pen Needle, Diabetic [[place]] 1 each ACHS #120 dis.needle 12/23/16 This patient is new to me today: No Emergency Visit: Yes ED Registration Date: 12/20/16 Care time: The patient presented to the Emergency Department on the above date and was hospitalized for further evaluation of their emergent condition. Critical Care patient: No - Discharge Referral Referred to [facility] No
[2016-12-23] MEDS ORDERED: oxyCODONE HCL 5 MG TABLET PO ONE (12:45)
[2016-12-23] MEDS ORDERED: ACETAMINOPHEN 325 MG TABLET (FP) PO ONE (12:45)
[2016-12-23 14:33] VITALS: BP 139/76; PULSE 83; TEMP 97.7
--- NOTE | 2016-12-24 08:40 | DS ---
Physical Exam: SUBJECTIVE: Patient seen and examined OBJECTIVE: Vital Signs Period Temp Pulse Resp BP Sys/Angel Pulse Ox Last 24 Hr 97.7 F 83 20-20 139/76 98 PHYSICAL EXAM GENERAL: The patient is awake, alert, and fully oriented, in no acute distress. HEAD: Normal with no signs of trauma. EYES: PERRL, extraocular movements intact, sclera anicteric, conjunctiva clear. ENT: Ears normal, nares patent, oropharynx clear without exudates, moist mucous membranes. NECK: Trachea midline, full range of motion, supple. LUNGS: Breath sounds equal, clear to auscultation bilaterally, no wheezes, no crackles, no accessory muscle use. HEART: Regular rate and rhythm, S1, S2 without murmur, rub or gallop. ABDOMEN: Soft, nontender, nondistended, normoactive bowel sounds, no guarding, no rebound, no hepatosplenomegaly, no masses. EXTREMITIES: 2+ pulses, warm, well-perfused, no edema. NEUROLOGICAL: Cranial nerves II through XII grossly intact. Normal speech, gait not observed. PSYCH: Normal mood, normal affect. SKIN: Warm, dry, normal turgor, no rashes or lesions noted. LABS Laboratory Results - last 24 hr 12/23/16 11:24 POC Glucometer 251 HOSPITAL COURSE: Date of Admission:12/20/16 Date of Discharge: 12/24/16 Discharge Summary Reason For Visit: PERIRECTAL ABSCESS - Instructions Diet, Activity, Other Instructions: You were admitted and treated for an abscess with cellulitis on your buttocks. It was drained by surgeon Dr Adan. Continue to take antibiotics until they are finished. Even if your symptoms resolved. Take lactobacillus which is a probiotic while on antibiotics. this will prevent development of diarrhea. Continue daily wound care as you were shown by the nurse (clean the wound with soap and water, pack with kerlix soaked in betadine and place dry clean guaze over wound) You were prescribed percocet for pain. This medication can cause you to be drowsy do not drive or operate heavy machinery while taking this medication. It can also cause constipation. ensure you are having daily bowel movements while on this medication. You were also discovered to be diabetic while you were here. It is very important to closely monitor your sugars. Check your sugars every morning when you wake up and prior to each meal. Take Levemir 5 units at bedtime. Write down your sugars that you get a bring them to your doctor next week. You may need further adjustment in your medication. You will need your A1c (diabetic number) checked in 3 months. Here it was 10.9 Monitor for signs of low blood sugar. Refer to handout given Follow a diabetic diet as discussed with headlight assembler Follow up with your primary care doctor and the surgeon (Dr Adan) in 1 week If your buttock pain gets worse or develop high fever (temp >101) return to the ER. Insulin sliding scale Sugar # units of insulin <200 0 201-250 2 251-300 4 301-350 6 351-400 8 >401 10 and call your primary care doctor Referrals: Chato Adan MD [Staff Physician] - Darius Garrett MD [Staff Physician] - Disposition: VNS/HOME HEALTH CARE - Home Medications Comprehensive Discharge Medication List: Ambulatory Orders Docusate Sodium [Colace -] 100 mg PO TID #90 capsule 12/21/16 Oxycodone HCl/Acetaminophen [Percocet 5-325 mg Tablet] 1 - 2 tab PO Q6H #28 tab MDD 4 12/21/16 Insulin (Levemir) [Levemir Flexpen -] 5 units SQ DAILY #1 pen 12/23/16 Insulin Aspart [Novolog Flexpen] 100 unit SQ AC #2 insuln.pen 12/23/16 Lactobacillus Acidophilus [Acidophilus Lactobacilli] 1 each PO DAILY #7 capsule 12/23/16 Lancets [Lancets Ultra Thin] 1 each AC #100 each 12/23/16 Levofloxacin [Levaquin -] 500 mg PO DAILY #7 tablet 12/23/16 Metronidazole [Flagyl -] 500 mg PO Q8H #22 tablet 12/23/16 Miscellaneous Medical Supply [Glucometer Device] 1 each NR ASDIR #1 kit Miscellaneous Medical Supply [Glucometer Test Strips #100] 1 each ASDIR #1 box 12/23/16 Pen Needle, Diabetic [[place]] 1 each ACHS #120 dis.needle 12/23/16 - Discharge Referral [facility]erred to [facility] No
--- NOTE | 2016-12-24 09:09 | DS ---
Physical Exam: SUBJECTIVE: Patient seen and examined at bed side. He si doing much better , he complains of buttock pain only when they change the dress. He jeffrey fever, chills, N/V/D/C. no chest pain or abdominal pain were reported. he jeffrey any urinary symptoms. OBJECTIVE: non significant PHYSICAL EXAM GENERAL: The patient is awake, alert, and fully oriented, in no acute distress. HEAD: Normal with no signs of trauma. EYES: sclera anicteric, conjunctiva clear. ENT: Ears normal, nares patent, oropharynx clear without exudates, moist mucous membranes. LUNGS: Breath sounds equal, clear to auscultation bilaterally, no wheezes, no crackles, no accessory muscle use. HEART: Regular rate and rhythm, S1, S2 without murmur, rub or gallop. ABDOMEN: Soft, nontender, nondistended, normoactive bowel sounds, no guarding, no rebound. EXTREMITIES: 2+ pulses, warm, well-perfused, no edema. NEUROLOGICAL: Cranial nerves II through XII grossly intact. Normal speech, gait not observed. PSYCH: Normal mood, normal affect. SKIN: Warm, dry, no rashes or lesions noted. dressing on his left buttocm, S/P I&D. LABS Laboratory Results - last 24 hr 12/23/16 11:24 POC Glucometer 251 HOSPITAL COURSE: 36 YO male with no past medical history , who presented to [facility] with one week history of gilbert-anal abscess . He noticed some redness on his buttocks last week , that prompted him to see , within 3 days it compose a 2x2 cm abscess that start draining some pussy fluids, and blood . patient reports fever and chills last night, associated with pain in the area 8/10 improved with pain killer and loss of appetite for 3 days because he is scared to use the bathroom. Patient was found to be tachycardic of 86, and wbc 12.4 and he was admitted to med-surg for sepsis. Patient denies any chest pain, SOB, abdominal pain, N/V/D/C, or any urinary symptoms. Patient has a history of using diabetes medicine for 3 months but does not know the name, and was advised by his doctor to loose weight. Patient is and only have sex with his . 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 ER course was notable for: (1) wbc 12.4, HR 86, BP 141/88, Glu 263 (2) 1000 CC NS bolus (3) CT A/P shows inflammatory changes but no discrete abscess. Date of Admission:12/20/16 Date of Discharge: 12/24/16 Patient presented to the ED with one week history of erythema on his left buttocks that progress to 2/2 cm abscess that started draining puss and fluids and accompanied by fever and chills , he was admitted for per anal abscess. Dr Chato Adan , Patient was started on levaquin and flagyl and general surgeon was consulted and performed I&D on 12/21 and removed the necrotic area 8x8x8 cm in his left buttock and put pack and dressing on it . Patient needs to continue course of flagyl and levaquin for 10 days total . Patient needs to change the dressing daily as directed. During the hospital course patient was found to have elevated blood sugar with HgA1c 10.9 Patient was started on levemir 5 units at bed time , and insulin sliding scale. 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 Patient was educated about diabetic diet and importance of loosing weight and taking his insulin as prescribed. Patient will need to continue taking Abx till finish Patient needs to continue using insulin and documenting blood glucose number Patient will follow up with his PCP dr. Darius Garrett within a week patient will follow up with Dr. Adan within one week Patient was informed to return to ED if the wounds worsen or he develop fever, chills. Minutes to complete discharge: 30 Discharge Summary Reason For Visit: PERIRECTAL ABSCESS - Instructions Diet, Activity, Other Instructions: You were admitted and treated for an abscess with cellulitis on your buttocks. It was drained by surgeon Dr Adan. Continue to take antibiotics until they are finished. Even if your symptoms resolved. Take lactobacillus which is a probiotic while on antibiotics. this will prevent development of diarrhea. Continue daily wound care as you were shown by the nurse (clean the wound with soap and water, pack with kerlix soaked in betadine and place dry clean guaze over wound) You were prescribed percocet for pain. This medication can cause you to be drowsy do not drive or operate heavy machinery while taking this medication. It can also cause constipation. ensure you are having daily bowel movements while on this medication. You were also discovered to be diabetic while you were here. It is very important to closely monitor your sugars. Check your sugars every morning when you wake up and prior to each meal. Take Levemir 5 units at bedtime. Write down your sugars that you get a bring them to your doctor next week. You may need further adjustment in your medication. You will need your A1c (diabetic number) checked in 3 months. Here it was 10.9 Monitor for signs of low blood sugar. Refer to handout given Follow a diabetic diet as discussed with unit coordinator Follow up with your primary care doctor and the surgeon (Dr Adan) in 1 week If your buttock pain gets worse or develop high fever (temp >101) return to the ER. Insulin sliding scale Sugar # units of insulin <200 0 201-250 2 251-300 4 301-350 6 351-400 8 >401 10 and call your primary care doctor Referrals: Chato Adan MD [Staff Physician] - Darius Garrett MD [Staff Physician] - Disposition: VNS/HOME HEALTH CARE - Home Medications Comprehensive Discharge Medication List: Ambulatory Orders Docusate Sodium [Colace -] 100 mg PO TID #90 capsule 12/21/16 Oxycodone HCl/Acetaminophen [Percocet 5-325 mg Tablet] 1 - 2 tab PO Q6H #28 tab MDD 4 12/21/16 Insulin (Levemir) [Levemir Flexpen -] 5 units SQ DAILY #1 pen 12/23/16 Insulin Aspart [Novolog Flexpen] 100 unit SQ AC #2 insuln.pen 12/23/16 Lactobacillus Acidophilus [Acidophilus Lactobacilli] 1 each PO DAILY #7 capsule 12/23/16 Lancets [Lancets Ultra Thin] 1 each AC #100 each 12/23/16 Levofloxacin [Levaquin -] 500 mg PO DAILY #7 tablet 12/23/16 Metronidazole [Flagyl -] 500 mg PO Q8H #22 tablet 12/23/16 Miscellaneous Medical Supply [Glucometer Device] 1 each NR ASDIR #1 kit Miscellaneous Medical Supply [Glucometer Test Strips #100] 1 each NR ASDIR #1 box 12/23/16 Pen Needle, Diabetic [[place]] 1 each ACHS #120 dis.needle 12/23/16 This patient is new to me today: No Emergency Visit: Yes ED Registration Date: 12/20/16 Care time: The patient presented to the Emergency Department on the above date and was hospitalized for further evaluation of their emergent condition. Critical Care patient: No - Discharge Referral Referred to [facility] No
--- NOTE | 2016-12-25 14:14 | PATH ---
Surgical Pathology Report Patient Name: BEREKET LOPEZ Med. Rec. #: [id number] /Age/Gender: 1980 (Age: 36) / M Account: [id number] Location: [facility] MED/SURG Taken: 12/21/2016 Received: 12/22/2016 Reported: 12/25/2016 Physicians: Shy Lind M.D. Specimen(s) Received ABSCESS CAVITY CONTENTS NECROTIC SUBCUTANOUS TISSUE PERIRECTAL ABSCESS LEFT Clinical History Perirectal abscess Final Diagnosis SOFT TISSUE, LEFT PERIRECTAL, EXCISION: PURULENT MATERIAL WITH FIBROTIC WALL CONSISTENT WITH ABSCESS, ALONG WITH ADIPOSE TISSUE WITH AREAS OF FAT NECROSIS AND CHRONIC INFLAMMATION. Comment: Recommend correlation with clinical findings and follow up as clinically indicated. Electronically Signed Loyd Zarate M.D. Gross Description Received in formalin labeled "abscess cavity contents and necrotic subcutaneous tissue left perirectal," is a 3.0 x 2.4 x 0.6 cm aggregate of montiel brown, necrotic portions of soft tissue. Ict Security Specialist sections are submitted in one cassette. 12/22/2016 [facility]12/22/2016
== END 2016-12-23 14:25 | disposition home health service (06) | DRG 710 ==
LOC: JER 10:37 → JERBED 13:11 → J8W 15:09
PROVIDERS: ADMIT Internal Medicine; ATTEND Internal Medicine
PROC: 0JB90ZZ Excision of Buttock Subcutaneous Tissue and Fascia, Open Approach (ICD-10-PCS; 2016-12-21)
PROC: 0D9P0ZX Drainage of Rectum, Open Approach, Diagnostic (ICD-10-PCS; principal; 2016-12-21 17:00)
DX: A41.9 Sepsis, unspecified organism (principal); K61.1 Rectal abscess; E11.65 Type 2 diabetes mellitus with hyperglycemia; R00.0 Tachycardia, unspecified; I10 Essential (primary) hypertension; E66.8 Other obesity; Z68.35 Body mass index [BMI] 35.0-35.9, adult; Z88.0 Allergy status to penicillin; Z87.891 Personal history of nicotine dependence
CPT/HCPCS: 36415; 74177-TC; 80048; 80053; 81003; 83036; 83605; 85025; 85610; 85730; 86850; 86900; 86901; 87040; 87070; 87086; 87186; 87205; 87389; 88304-TC; 90688; 93005; 93010; 94760; 99282-25; G0008

== ENCOUNTER 2019-05-06 12:48 | Emergency (ER) | payer OTHER ==
[2019-05-06 13:34] VITALS: PULSE 73; TEMP 97.8; BMI 37.1
[2019-05-06] MEDS ORDERED: SODIUM CHLORIDE 1,000 ML IV STA (15:35)
[2019-05-06] MEDS ORDERED: FAMOTIDINE 20 MG/50 ML IVPB 20 MG/50 ML MG IVPB ONE ×2 (15:35→16:15)
[2019-05-06] MEDS ORDERED: MAG HYDROX/AL HYDROX/SIMETH 30 ML UNIT-DOSE CUP PO ONE (15:35)
--- NOTE | 2019-05-06 16:06 | PDOC ---
History of Present Illness - General History Source: Patient Exam Limitations: Clinical Condition - History of Present Illness Initial Comments: 05/06/19 16:02 Patient with a history of lsy-nyoszap-zxuoyaubc diabetes on metformin presented with complaint of one-week history of periumbilical pain and feeling of ball in umbilicus. Patient also reported 2-day history of diarrhea. Denies nausea, vomiting, fevers, chills, shortness of breath, chest pain, dizziness. Denies any other symptoms. Patient did not take anything for symptoms Is this a multiple visit Asthma Patient?: No Timing/Duration: 1 week <Angel Johnston - Last Filed: 05/06/19 17:36> <Josse Aggarwal - Last Filed: 05/09/19 10:04> - General Chief Complaint: Pain, Acute Stated Complaint: ABD PAIN Time Seen by Provider: 05/06/19 15:21 Past History - Past Medical History Anemia: No Asthma: No COPD: No - Psycho Social/Smoking Cessation Hx Smoking History: Never smoked Have you smoked in the past 12 months: No If you are a former smoker, when did you quit?: 13 YRS AGO Hx Alcohol Use: No Drug/Substance Use Hx: No Substance Use Type: None Hx Substance Use Treatment: No <Angel Johnston - Last Filed: 05/06/19 17:36> <Josse Aggarwal - Last Filed: 05/09/19 10:04> - Past Medical History Allergies/Adverse Reactions: Allergies Allergy/AdvReac Type Severity Reaction Status Date / Time Penicillins Allergy Mild Hives Verified 05/06/19 13:30 Home Medications: Ambulatory Orders Famotidine [Pepcid -] 40 mg PO DAILY #7 tablet 05/06/19 Mag Hydrox/Aluminum Hyd/Simeth [Maalox Advanced Suspension] 30 ml PO Q8H PRN # 200 ml 05/06/19 Metformin HCl [Glucophage] 500 mg PO BID 05/06/19 Ondansetron [Zofran -] 4 mg PO Q8H PRN #21 tablet 05/06/19 Rosuvastatin Calcium [Crestor] 10 mg PO HS 05/06/19 Review of Systems - Review of Systems Able to Perform ROS?: Yes Is the patient limited Arabic proficient: No Constitutional: No: Chills, Fever, Malaise HEENTM: No: Symptoms Reported, See HPI, Eye Pain, Blurred Vision, Tearing, Recent change in vision, Double Vision, Cataracts, Ear Pain, Ocular Prothesis, Ear Discharge, Nose Pain, Nose Congestion, Tinnitus, Nose Bleeding, Hearing Loss , Throat Pain, Throat Swelling, Mouth Pain, Dental Problems, Difficulty Swallowing, Mouth Swelling, Other Respiratory: No: Symptoms reported, See HPI, Cough, Orthopnea, Shortness of Breath, SOB with Exertion, SOB at Rest, Stridor, Wheezing, Productive cough, Hemoptysis, Other Cardiac (ROS): No: Symptoms Reported, See HPI, Chest Pain, Edema, Irregular Heart Rate, Lightheadedness, Palpitations, Syncope, Chest Tightness, Other ABD/GI: Yes: Symptoms Reported, See HPI, Diarrhea, Abdominal cramping (gilbert- umbilical). No: Abd. Pain w/ defecation, Blood Streaked Bowels, Constipated, Difficulty Swallowing, Nausea, Poor Fluid Intake, Rectal Bleeding, Vomiting : No: Symptoms Reported, Burning, Discharge, Frequency, Urgency All Other Systems: Reviewed and Negative <Angel Johnston - Last Filed: 05/06/19 17:36> *Physical Exam - Vital Signs Last Vital Signs Temp Pulse Resp BP Pulse Ox 97.8 F 73 18 143/91 97 05/06/19 13:33 05/06/19 13:33 05/06/19 13:33 05/06/19 13:33 05/06/19 13:33 - Physical Exam 05/06/19 16:06 GENERAL: Well developed, well nourished. Awake and alert. No acute distress. HEENT: Normocephalic, atraumatic. PERRLA, EOMI. No conjunctival pallor. Sclera are non-icteric. Moist mucous membranes. Oropharynx is clear. NECK: Supple. Full ROM. CARDIOVASCULAR: Regular rate and rhythm. No murmurs, rubs, or gallops. Distal pulses are 2+ and symmetric. PULMONARY: No evidence of respiratory distress. Lungs clear to auscultation bilaterally. No wheezing, rales or rhonchi. ABDOMINAL: Soft. Mild periumbilical tenderness. Non-distended. No rebound or guarding. No organomegaly. Normoactive bowel sounds. MUSCULOSKELETAL Normal range of motion at all joints. SKIN: Warm and dry. Normal capillary refill. No rashes. No jaundice. NEUROLOGICAL: Alert, awake, appropriate. Gait is normal without ataxia. PSYCHIATRIC: Cooperative. Good eye contact. Appropriate mood General Appearance: Yes: Nourished, Appropriately Dressed, Mild Distress <Angel Johnston - Last Filed: 05/06/19 17:36> - Vital Signs Last Vital Signs Temp Pulse Resp BP Pulse Ox 97.8 F 73 18 136/86 98 05/06/19 13:33 05/06/19 17:48 05/06/19 17:48 05/06/19 17:48 05/06/19 17:48 <AlessiaJosse cardozo - Last Filed: 05/09/19 10:04> ED Treatment Course - LABORATORY CBC & Chemistry Diagram: 05/06/19 15:52 05/06/19 15:55 - RADIOLOGY Radiology Studies Ordered: Category Date Time Status ABDOMEN US [US] Stat Ultrasound 05/06/19 15:45 Ordered <Angel Johnston - Last Filed: 05/06/19 17:36> - LABORATORY CBC & Chemistry Diagram: 05/06/19 15:52 05/06/19 15:55 - ADDITIONAL ORDERS Additional order review: 05/06/19 15:52 RBC 5.26 MCV 88.0 MCHC 33.5 RDW 13.6 MPV 8.9 Neutrophils % 56.4 D Lymphocytes % 26.8 D Monocytes % 12.0 H Eosinophils % 4.1 D Basophils % 0.7 - Medications Given in the ED: ED Medications Discontinued Medications Generic Name Dose Route Start Last Admin Trade Name Freq PRN Reason Stop Dose Admin Al Hydroxide/Mg Hydroxide 30 ml 05/06/19 15:35 05/06/19 16:42 Mylanta Oral Suspension - PO 05/06/19 15:36 30 ml ONCE ONE Administration Famotidine/Sodium Chloride 20 mg in 50 mls @ 100 mls/hr 05/06/19 15:35 16:42 Pepcid 20 Mg Premixed Ivpb - IVPB 05/06/19 16:04 100 mls/hr ONCE ONE Administration Sodium Chloride 1,000 mls @ 1,000 mls/hr 05/06/19 15:35 05/06/19 16:42 Normal Saline - IV 05/06/19 16:34 1,000 mls/hr ASDIR STA Administration <Josse Aggarwal - Last Filed: 05/09/19 10:04> Medical Decision Making - Medical Decision Making 05/06/19 16:04 Patient with a history of jqx-qbbwlwi-dtxwfrzut diabetes on metformin presented with complaint of one-week history of periumbilical pain and feeling of ball in umbilicus. Patient also reported 2-day history of diarrhea. Denies nausea, vomiting, fevers, chills, shortness of breath, chest pain, dizziness. Denies any other symptoms. Patient did not take anything for symptoms Exam significant for moderate periumbilical tenderness without guarding or rebound. Patient afebrile. Tiny palpable ball in the umbilicus which is likely due to small hernia versus umbilical stalk. CBC, CMP and lipase lab ordered to acute abnormality. Abdominal ultrasound ordered to rule out hernia. Maalox 30 mL p.o. and Pepcid ordered for abdominal discomfort. Treat based on lab and imaging results 05/06/19 16:54 Abdominal ultrasound shows small umbilical hernia no strangulated which explain patient periumbilical pain. Small 1 cm gallstone seen on ultrasound with evidence of cholecystitis. Labs still pending 05/06/19 17:21 CBC and chemistry lab unremarkable. Patient stable for discharge on MiraLAX and Pepcid as needed for abdominal discomfort with advised to increase fluid intake and follow-up with general surgeon for management of gallstone and umbilical hernia. Plan discussed with patient patient agrees with plan. Patient reported improvement in abdominal pain and stable for discharge. Patient eating sandwich without any abdominal discomfort <Angel Johnston - Last Filed: 05/06/19 17:36> - Medical Decision Making The patient was seen and evaluated in conjunction with MARK Johnston under my direct supervision, ancillary studies were reviewed. I independently interviewed and evaluated the patient and I agree with the plan as outlined by MARK Johnston. 39y M hx of NIDDM presents with 1 week of abd pain/mass associated with 2 day hx of dairrhea w/o f/c, n/v, cp, sob, back pain, dysuria. on exam pt has a small palpable mass near umbilicus - suspect small umbilical hernia that is reducible. US confirms the same. labs unremarkble. pt dc with out pt fu <Josse Aggarwal - Last Filed: 02/07/20 10:04> Discharge - Discharge Information Problems reviewed: Yes - Admission No <Angel Johnston - Last Filed: 05/06/19 17:36> <Josse Aggarwal - Last Filed: 05/09/19 10:04> - Discharge Information Clinical Impression/Diagnosis: Umbilical hernia without obstruction or gangrene Gallstone Qualifiers: Cholecystitis presence: without cholecystitis Biliary obstruction: without biliary obstruction Qualified Code(s): K80.20 - Calculus of gallbladder without cholecystitis without obstruction Condition: Stable Disposition: HOME - Additional Discharge Information Prescriptions: Famotidine [Pepcid -] 40 mg PO DAILY #7 tablet Mag Hydrox/Aluminum Hyd/Simeth [Maalox Advanced Suspension] 30 ml PO Q8H PRN # 200 ml PRN Reason: abdominal discomfort Ondansetron [Zofran -] 4 mg PO Q8H PRN #21 tablet PRN Reason: nausea - Follow up/Referral Referrals: Drew Ruggiero MD [Staff Physician] - - Patient Discharge Instructions Patient Printed Discharge Instructions: DI for Gallstones, Abdominal Hernia Additional Instructions: Your blood work is normal. Your abdominal ultrasound shows small umbilical hernia which is the likely of the cause of umbilical pain and also shows small nonobstructing gallstone. Take prescribed medication for symptoms abdominal pain. Follow-up with referred abdominal surgeon as soon as possible for follow- up care for gallstone and umbilical hernia - Post Discharge Activity
[2019-05-06] MEDS ORDERED: FAMOTIDINE 20 MG TABLET ONE (16:15)
[2019-05-06] MEDS ORDERED: MAG HYDROX/AL HYDROX/SIMETH 30 ML UNIT-DOSE CUP ONE (16:15)
[2019-05-06 16:49] LABS: BASO % 0.7 % (0-2.0); EOS % 4.1 % (0-4.5); HEMATOCRIT 46.3 % (35.4-49); HEMOGLOBIN 15.5 GM/dL (11.7-16.9); LYMPH % 26.8 % (8-40); MCH 29.4 pg (25.7-33.7); MCHC 33.5 g/dl (32.0-35.9); MEAN PLT VOLUME 8.9 fl (7.5-11.1); NEUT % 56.4 % (42.8-82.8); PLATELET COUNT 236 K/MM3 (134-434); RBC 5.26 M/mm3 (4.00-5.60); RDW 13.6 % (11.9-15.9); WHITE BLOOD COUNT 5.8 K/mm3 (4.0-10.0)
[2019-05-06 17:17] LABS: ALBUMIN 3.8 g/dl (3.4-5.0); BILIRUBIN,TOTAL 0.2 mg/dL (0.2-1); BLOOD UREA NITROGEN 12.5 mg/dL (7-18); CALCIUM 8.9 mg/dL (8.5-10.1); CREATININE 0.7 mg/dL (0.55-1.3); POTASSIUM 3.9 mmol/L (3.5-5.1); TOT PROT 6.8 g/dl (6.4-8.2)
[2019-05-06 17:49] VITALS: BP 136/86
== END 2019-05-06 17:50 | disposition home or self-care (01) ==
LOC: SUPCPDRO 12:48 → JER 12:48
PROC: 3E0337Z Introduction of Electrolytic and Water Balance Substance into Peripheral Vein, Percutaneous Approach (ICD-10-PCS; principal; 2019-05-06)
DX: K42.9 Umbilical hernia without obstruction or gangrene (principal); K80.20 Calculus of gallbladder without cholecystitis without obstruction; E11.9 Type 2 diabetes mellitus without complications; Z79.84 Long term (current) use of oral hypoglycemic drugs
CPT/HCPCS: 36415; 76705-TC; 80053; 83690; 85025; 96365; 99284-25; J7030

== ENCOUNTER 2023-12-12 06:34 | Observation (INO) | payer OTHER ==
[2023-12-12] MEDS ORDERED: morphine SULFATE 4 MG/ML VIAL ONE (07:35)
[2023-12-12] MEDS ORDERED: KETOROLAC TROMETHAMINE 30 MG/1 ML VIAL ONE (07:36)
[2023-12-12] MEDS ORDERED: ONDANSETRON 4 MG/2 ML VIAL ONE (07:36)
[2023-12-12] MEDS: SODIUM CHLORIDE 0.9% 500 ML INFUS.BAG IV ONE (07:58)
[2023-12-12] MEDS: KETOROLAC TROMETHAMINE 30 MG/1 ML VIAL IVPUSH ONE (07:58)
[2023-12-12] MEDS: morphine CARPU-JECT 4 MG/1 ML DISP.SYRIN IVPUSH ONE (07:59)
[2023-12-12] MEDS: ONDANSETRON 4 MG/2 ML VIAL IVPUSH ONE (07:59)
[2023-12-12 08:12] LABS: BASO % 0.5 % (0-2.0); EOS % 3.1 % (0-4.5); HEMATOCRIT 49.5 % (35.4-49); HEMOGLOBIN 16.8 GM/dL (11.7-16.9); LYMPH % 15.3 % (8-40); MCH 30.3 pg (25.7-33.7); MEAN CELL VOLUME 89.1 fl (80-96); MEAN PLT VOLUME 8.5 fl (7.5-11.1); NEUT % 71.1 % (42.8-82.8); PLATELET COUNT 257 10^3/uL (134-434); RBC 5.56 M/mm3 (4.00-5.60); RDW 14.1 % (11.9-15.9); WHITE BLOOD COUNT 8.4 K/mm3 (4.0-10.0)
[2023-12-12 08:44] LABS: POTASSIUM 4.2 mmol/L (3.5-5.1)
[2023-12-12 08:45] LABS: CALCIUM 9.3 mg/dL (8.5-10.1)
[2023-12-12 08:49] LABS: BILIRUBIN,TOTAL 0.4 mg/dL (0.2-1); CREATININE 0.8 mg/dL (0.55-1.3)
[2023-12-12 08:51] LABS: TOT PROT 7.1 g/dl (6.4-8.2)
[2023-12-12 09:40] LABS: EPI CELLS 23 /uL (0-25.1); HYALINE CASTS 0 /uL (0-3.1); PH,URINE 5.5 (5.0-8.0); URINE APPEARANCE CLEAR; URINE BACTERIA 22 /uL (0-1359); URINE BILIRUBIN NEGATIVE (NEGATIVE); URINE COLOR YELLOW; URINE GLUCOSE (UA) 3+ (NEGATIVE); URINE KETONE NEGATIVE (NEGATIVE); URINE LEUK ESTERASE NEGATIVE (NEGATIVE); URINE NITRITE NEGATIVE (NEGATIVE); URINE PROTEIN NEGATIVE (NEGATIVE); URINE UROBILINOGEN 0.2 mg/dL (0.2-1.0)
[2023-12-12 10:16] LABS: URINE RBC 59 /uL (0-23.9); URINE WBC 80 /uL (0-25.8)
[2023-12-12] MEDS ORDERED: HEPARIN NA (PORCINE) 5,000 UNITS/ML 1ML VIAL ONE (13:22)
[2023-12-12] MEDS ORDERED: BUPIVACAINE HCL/PF 0.25% (2.5MG/ML) 10 ML VIAL ONE (13:22)
[2023-12-12] MEDS ORDERED: cefOXitin SODIUM 2 GM VIAL (RESTRICTED TO ID) IVPB ONE (13:23)
[2023-12-12] MEDS ORDERED: PROPOFOL 20 ML ONE (13:51)
[2023-12-12] MEDS ORDERED: MIDAZOLAM HCL 2 MG/2 ML SINGLE DOSE VIAL ONE (13:51)
[2023-12-12] MEDS: HEPARIN NA (PORCINE) 5,000 UNITS/ML 1ML VIAL SQ ONE (14:00)
[2023-12-12] MEDS: cefOXitin SODIUM 2 GM VIAL (RESTRICTED TO ID) IVPB ONE (14:00)
[2023-12-12] MEDS: BUPIVACAINE HCL/PF 0.25% (2.5MG/ML) 10 ML VIAL IJ ONE ×2 (14:17)
[2023-12-12] MEDS ORDERED: TRANEXAMIC ACID 1000 MG/10 ML VIAL ONE (14:36)
[2023-12-12] MEDS ORDERED: ONDANSETRON 4 MG/2 ML VIAL IVPUSH PRN ×2 (15:14→15:41)
[2023-12-12] MEDS ORDERED: SUGAMMADEX SODIUM 200 MG/2 ML VIAL ONE (15:19)
[2023-12-12] MEDS ORDERED: oxyCODONE HCL 5 MG TABLET PO PRN (15:41)
[2023-12-12] MEDS: LACTATED RINGERS SOLUTION 1,000 ML IV SCH ×2 (16:00→17:36)
[2023-12-12] MEDS ORDERED: INSULIN ASPART SLIDING SCALE (NOVOLOG) 1 VIAL SQ SCH (16:30)
[2023-12-12 17:54] VITALS: RESP 18; BMI 40.8
[2023-12-12] MEDS: KETOROLAC TROMETHAMINE 15 MG/ML VIAL IVPUSH PRN (17:59)
[2023-12-12 20:12] VITALS: BP 139/87; PULSE 71; TEMP 97.9
== END 2023-12-12 20:19 | disposition home or self-care (01) ==
LOC: JER 06:34 → JERBED 12:19 → J8W 17:13
PROVIDERS: ADMIT Internal Medicine; ATTEND Internal Medicine
PROC: 0FT44ZZ Resection of Gallbladder, Percutaneous Endoscopic Approach (ICD-10-PCS; principal; 2023-12-12 12:00)
DX: K80.62 Calculus of gallbladder and bile duct with acute cholecystitis without obstruction (principal); E78.5 Hyperlipidemia, unspecified; E11.9 Type 2 diabetes mellitus without complications; E66.9 Obesity, unspecified; Z88.0 Allergy status to penicillin
CPT/HCPCS: 36415; 71046-TC-FY; 76705-TC; 80053; 81003; 82962; 83690; 85025; 86850; 86900; 86901; 88304-TC; 94010; 94760; 99285-25; G0378; J1644